=== PATIENT | female | born 1980 | race Caucasian/White ===

== ENCOUNTER 2019-08-28 12:45 | Emergency (ER) | payer MEDICAID ==
[~2019-08-28] VITALS: Ht 160 cm; Wt 86.2 kg
[~2019-08-28 12:45] MED LIST: NYQUIL
--- NOTE | 2019-08-28 13:30 | NUR ---
no answer in er lobby
[2019-08-28 14:25] VITALS: BP 142/72
--- NOTE | 2019-08-28 14:41 | NUR ---
urine cup handed to pt for sample
--- NOTE | 2019-08-28 15:10 | NUR ---
PT TAKEN TO BED 9.
--- NOTE | 2019-08-28 15:20 | NUR ---
c/o intermittent sudden substernal sharp pain 02/20 with dizziness, all 4 extremities numbness x 1 month. neuro intact-pupils perrl, equal arm activities director. ambulatory with steady gait. pt vs stable, pt alert and oriented. pt adds also "right eyelid twitching and crawling sensation to scalp" hx--stress, rx---seroquel sx---tubal ligation, cholecystectomy
[2019-08-28 16:39] VITALS: BP 133/89
--- NOTE | 2019-08-28 16:40 | NUR ---
Patient discharged with v/s stable. Written and verbal after care instructions given and explained. Patient alert, oriented and verbalized understanding of instructions. Ambulatory with steady gait. All questions addressed prior to discharge. ID band removed. Patient advised to follow up with PMD. Rx of KEFLEX/OMEPRAZOLE/TYLENOL given. Patient educated on indication of medication including possible reaction and side effects. Opportunity to ask questions provided and answered.
== END 2019-08-28 16:40 | disposition home or self-care (01) ==
LOC: MED 12:45
DX: F41.9 Anxiety disorder, unspecified (principal); K21.9 Gastro-esophageal reflux disease without esophagitis; N39.0 Urinary tract infection, site not specified; Z90.49 Acquired absence of other specified parts of digestive tract; Z79.899 Other long term (current) drug therapy
CPT/HCPCS: 71045; 81002; 81025; 93005; 99283